=== PATIENT | female | born 1945 | race Caucasian/White ===

== ENCOUNTER 2021-02-28 15:33 | Outpatient (CLI) | payer MEDICARE, SELFPAY | END 2021-02-28 15:34 | disposition home or self-care (01) | LOC: CHSLAB 15:39 | PROVIDERS: Visit Provider Specialist | DX: C44.319 Basal cell carcinoma of skin of other parts of face (principal) | CPT/HCPCS: 88305 ==

== ENCOUNTER 2022-03-27 10:27 | Outpatient (CLI) | payer MEDICARE, SELFPAY | END 2022-03-27 10:28 | disposition home or self-care (01) | LOC: CHSLAB 10:34 | PROVIDERS: PCP Specialist; Visit Provider Specialist | DX: C44.319 Basal cell carcinoma of skin of other parts of face (principal) | CPT/HCPCS: 88305 ==